=== PATIENT | male | born 1970 | race Asian ===

== ENCOUNTER 2020-10-12 16:58 | Emergency (ER) | payer MEDICAID ==
[~2020-10-12] VITALS: Ht 160 cm; Wt 79.4 kg
[2020-10-12 17:37] VITALS: Ht 160 cm; Wt 79.4 kg
[2020-10-12 19:29] VITALS: BP 110/71
== END 2020-10-12 19:29 | disposition home or self-care (01) ==
LOC: ED 16:58
DX: M17.0 Bilateral primary osteoarthritis of knee (principal); Z98.890 Other specified postprocedural states

== ENCOUNTER 2020-12-15 18:00 | Emergency (ER) | payer MEDICAID ==
[~2020-12-15] VITALS: Ht 160 cm; Wt 76.7 kg
[2020-12-15 18:12] VITALS: BP 134/92; Ht 160 cm; Wt 76.7 kg
[2020-12-15] MEDS ORDERED: IBU600 M2 PO (18:34)
[2020-12-15] MEDS ORDERED: AMOXICILLIN500 MG PO (18:34)
== END 2020-12-15 18:50 | disposition home or self-care (01) ==
LOC: ED 18:00
DX: K08.89 Other specified disorders of teeth and supporting structures (principal)